=== PATIENT | female | born 1940 | race Caucasian/White ===

== ENCOUNTER 2017-01-28 07:55 | Inpatient (IN) | payer OTHER ==
[2017-01-28 08:07] VITALS: BMI 28.7
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
[2017-01-28 09:57] LABS: MCH 30.6 pg (25.7-33.7); MCHC 33.1 g/dl (32.0-36.0); MEAN CELL VOLUME 92.3 fl (80-96); MEAN PLT VOLUME 8.9 fl (7.5-11.1); PLATELET COUNT 171 K/MM3 (134-434); RDW 14.6 % (11.6-15.6); WHITE BLOOD COUNT 18.3 K/mm3 (4.0-10.0)
[2017-01-28 10:02] LABS: ALBUMIN 4.1 g/dl (3.4-5.0); ANION GAP 8 (8-16); CALCIUM 9.9 mg/dL (8.5-10.1); CO2 27 mmol/L (21-32); CREATININE 0.8 mg/dL (0.55-1.02); GLUCOSE,RANDOM 128 mg/dL (74-106); SGOT/AST 50 U/L (15-37); SGPT/ALT 43 U/L (12-78)
[2017-01-28 10:04] LABS: ALK PHOS 87 U/L (45-117); BILIRUBIN,TOTAL 0.6 mg/dL (0.2-1.0); TOT PROT 7.8 g/dl (6.4-8.2)
[2017-01-28 10:17] LABS: INR 1.02 (0.82-1.09); PROTHROMBIN TIME (PATIENT) 11.2 SEC (9.98-11.88)
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
[2017-01-28 12:04] LABS: BASOPHIL 0.3 % (0-2.0); EOSINOPHIL 0.3 % (0-4.5); MCH 30.6 pg (25.7-33.7); MCHC 33.1 g/dl (32.0-36.0); MEAN CELL VOLUME 92.6 fl (80-96); MEAN PLT VOLUME 9.5 fl (7.5-11.1); NEUTROPHILS 88.9 % (42.8-82.8); PLATELET COUNT 172 K/MM3 (134-434); WHITE BLOOD COUNT 19.1 K/mm3 (4.0-10.0)
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
[2017-01-28 15:23] LABS: URINE APPEARANCE CLEAR; URINE BILIRUBIN NEGATIVE (NEGATIVE); URINE BLOOD NEGATIVE (NEGATIVE); URINE COLOR STRAW; URINE GLUCOSE (UA) NEGATIVE (NEGATIVE); URINE KETONE NEGATIVE (NEGATIVE); URINE LEUK ESTERASE NEGATIVE (NEGATIVE); URINE NITRITE NEGATIVE (NEGATIVE); URINE PROTEIN NEGATIVE (NEGATIVE); URINE UROBILINOGEN NEGATIVE mg/dL (0.2-1.0)
[2017-01-28 18:56] LABS: BASOPHIL 0.7 % (0-2.0); EOSINOPHIL 0.2 % (0-4.5); MCH 30.1 pg (25.7-33.7); MCHC 32.9 g/dl (32.0-36.0); MEAN CELL VOLUME 91.6 fl (80-96); NEUTROPHILS 75.4 % (42.8-82.8); PLATELET COUNT 176 K/MM3 (134-434); RDW 14.6 % (11.6-15.6); WHITE BLOOD COUNT 8.1 K/mm3 (4.0-10.0)
[2017-01-28] MEDS: KETOROLAC TROMETHAMINE 10 MG TABLET PO SCH ×2 (19:53→21:52)
[2017-01-28] MEDS: ENOXAPARIN NA (PORCINE) 40 MG/0.4 ML DISP.SYRIN SQ SCH (19:54)
[2017-01-28] MEDS: BACITRACIN 15 GM TUBE TOPICAL OINTMENT TP SCH (21:50)
[2017-01-28] MEDS ORDERED: KETOROLAC TROMETHAMINE 10 MG TABLET PO SCH (22:00)
[2017-01-29] MEDS: KETOROLAC TROMETHAMINE 10 MG TABLET PO SCH ×3 (06:09→21:50)
[2017-01-29] MEDS ORDERED: ACETAMINOPHEN 325 MG TABLET (FP) PO PRN (07:18)
[2017-01-29 08:03] LABS: EOSINOPHIL 3.4 % (0-4.5); MCH 31.3 pg (25.7-33.7); MCHC 34.1 g/dl (32.0-36.0); MEAN CELL VOLUME 91.7 fl (80-96); NEUTROPHILS 62.3 % (42.8-82.8); PLATELET COUNT 151 K/MM3 (134-434); RDW 14.5 % (11.6-15.6); WHITE BLOOD COUNT 5.3 K/mm3 (4.0-10.0)
[2017-01-29] MEDS ORDERED: PT OWN MED DRAWER 7, Y5N ONE (09:35)
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
[2017-01-29] MEDS: POLYETHYLENE GLYCOL 3350 119 GM BTL PO SCH (10:24)
[2017-01-29] MEDS: LISINOPRIL 10 MG TABLET (FP) PO SCH (10:28)
[2017-01-29] MEDS: ENOXAPARIN NA (PORCINE) 40 MG/0.4 ML DISP.SYRIN SQ SCH (10:28)
[2017-01-29] MEDS: TRIAMTERENE AND HCTZ - 37.5 MG/25 MG CAPSULE PO SCH (10:28)
[2017-01-29] MEDS: BACITRACIN 15 GM TUBE TOPICAL OINTMENT TP SCH ×2 (10:28→21:50)
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
[2017-01-30] MEDS: KETOROLAC TROMETHAMINE 10 MG TABLET PO SCH ×2 (06:06→14:19)
[2017-01-30 07:16] LABS: BASOPHIL 1.3 % (0-2.0); MCH 31.3 pg (25.7-33.7); MCHC 34.3 g/dl (32.0-36.0); MEAN CELL VOLUME 91.4 fl (80-96); MEAN PLT VOLUME 8.9 fl (7.5-11.1); NEUTROPHILS 58.4 % (42.8-82.8); PLATELET COUNT 155 K/MM3 (134-434); RDW 14.5 % (11.6-15.6); WHITE BLOOD COUNT 6.3 K/mm3 (4.0-10.0)
[2017-01-30 07:37] LABS: ALBUMIN 3.4 g/dl (3.4-5.0); ANION GAP 6 (8-16); CO2 27 mmol/L (21-32); GLUCOSE,RANDOM 109 mg/dL (74-106)
[2017-01-30 07:42] LABS: ALK PHOS 71 U/L (45-117); BILIRUBIN,TOTAL 1.2 mg/dL (0.2-1.0); CREATININE 0.6 mg/dL (0.55-1.02); SGOT/AST 91 U/L (15-37); SGPT/ALT 92 U/L (12-78); TOT PROT 6.6 g/dl (6.4-8.2)
--- NOTE | 2017-01-30 08:50 | PN ---
Progress Note (short form) - Note Progress Note: NEUROSURGERY Events noted Wants to go home. PE: AF, VSS General- unremarkable CV- RRR; Lungs: CTA; Abd- benign; Ext- no sign of DVT; R D1 toe ecchymotic/ edematous with some foot involvement A/A/OX4 CN- intact; Motor- 5/5 except R foot 4/5 pain limited; Sensation- intact LT; DTR - hyporeflexic CT Abd- Large hepatic cyst; mild T12 and L1 superior endplate depression without canal compromise; no significant paraspinal tissue edema Recommend LS spine MRI non-contrast to assess acuity of such compression deformity at T12 and L1 and to r/o unlikely neurological element impingement Pain meds DVT prophylaxis per medical team (on Lovenox) No neurosurgical intervention indicated unless there is significant neurological element compression (would doubt it) Ortho eval for R foot D1 distal phalynx fx MRI LS spine pending
--- NOTE | 2017-01-30 09:07 | PN ---
Progress Note (short form) - Note Progress Note: NEUROSURGERY Events noted Wants to go home Had resisted taking pain meds Feel pain is tolerable PE: Tmax 99.4, AF, VSS General- unremarkable CV- RRR; Lungs: CTA; Abd- benign; Ext- no sign of DVT; R D1 toe ecchymotic/ edematous with some foot involvement A/A/OX4 CN- intact; Motor- 5/5 except R foot/toes 4/5 pain limited; Sensation- intact LT ; DTR- hyporeflexic CT Abd- Large hepatic cyst; mild T12 and L1 superior endplate depression without canal compromise; no significant paraspinal tissue edema Blood culture negative to date Recommend LS spine MRI non-contrast to assess acuity of such compression deformity at T12 and L1 and to r/o neurological element impingement Pain meds prn DVT prophylaxis per medical team (on Lovenox) No neurosurgical intervention indicated unless there is significant neurological element compression Ortho eval for R foot D1 distal phalynx fx MRI LS spine pending Pt wishes to f/u with her own physicians close to home with the MRI disc after discharge
[2017-01-30] MEDS ORDERED: PT OWN MED DRAWER 7, Y5N ONE ×2 (09:57→14:11)
[2017-01-30] MEDS: TRIAMTERENE AND HCTZ - 37.5 MG/25 MG CAPSULE PO SCH (09:59)
[2017-01-30] MEDS: LISINOPRIL 10 MG TABLET (FP) PO SCH (09:59)
[2017-01-30] MEDS: ENOXAPARIN NA (PORCINE) 40 MG/0.4 ML DISP.SYRIN SQ SCH (09:59)
[2017-01-30] MEDS: POLYETHYLENE GLYCOL 3350 119 GM BTL PO SCH (10:01)
[2017-01-30] MEDS: BACITRACIN 15 GM TUBE TOPICAL OINTMENT TP SCH (10:01)
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
[2017-01-30] MEDS ORDERED: LISINOPRIL 10 MG TABLET (FP) PO SCH (10:58)
[2017-01-30] MEDS ORDERED: LISINOPRIL 10 MG TABLET (FP) PO ONE (11:15)
[2017-01-30 14:26] VITALS: BP 164/69; PULSE 84; TEMP 98.3
--- NOTE | 2017-01-30 15:51 | CONSULT ---
Consult - text type - Consultation Consultation Note: FULL CONSULT DICTATED IMP: RIGHT GREAT TOE FX PLAN: POST OP SHOE, WBAT, DC TO HOME, F/U X 2 WEEKS
[2017-01-30 15:52] LABS: ALBUMIN 3.4 g/dl (3.4-5.0); ANION GAP 8 (8-16); BILIRUBIN,TOTAL 0.7 mg/dL (0.2-1.0); CALCIUM 9.2 mg/dL (8.5-10.1); CO2 27 mmol/L (21-32); CREATININE 0.7 mg/dL (0.55-1.02); GLUCOSE,RANDOM 127 mg/dL (74-106); SGOT/AST 105 U/L (15-37); SGPT/ALT 103 U/L (12-78); TOT PROT 6.9 g/dl (6.4-8.2)
[2017-01-30 15:53] LABS: ALK PHOS 86 U/L (45-117)
--- NOTE | 2017-01-30 16:24 | DS ---
Physical Examination Vital Signs: Vital Signs Temperature 98.3 F 01/30/17 14:24 Pulse Rate 84 01/30/17 14:24 Respiratory Rate 18 01/30/17 14:24 Blood Pressure 164/69 01/30/17 14:24 O2 Sat by Pulse Oximetry (%) 96 01/30/17 10:00 Labs: CBC, BMP 01/30/17 14:49 Discharge Summary Reason For Visit: ABDOMINAL PAIN DUE TO INJURY Current Active Problems Abdominal pain due to injury (Acute) - Instructions Referrals: STAFF,NOT ON [Primary Care Provider] - Disposition: AGAINST MEDICAL ADVICE - Home Medications Comprehensive Discharge Medication List: Ambulatory Orders Hctz 25Mg/Triamterene [Dyazide 25/37.5MG -] 1 cap PO DAILY 01/28/17 Lisinopril 10 mg PO DAILY 01/28/17 - Discharge Referral Referred to [facility] Med P.C.: No
[2017-01-31] MEDS ORDERED: LISINOPRIL 20 MG TABLET (FP) PO SCH (10:00)
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
== END 2017-01-30 16:56 | disposition left against medical advice (07) | DRG 342 ==
LOC: JER 07:55 → JERBED 14:31 → J6S 17:54 → OBSVTOIN 01-30 12:35
PROVIDERS: ADMIT Internal Medicine; ATTEND Registered Nurse
DX: S92.491A Other fracture of right great toe, initial encounter for closed fracture (principal); S32.019A Unspecified fracture of first lumbar vertebra, initial encounter for closed fracture; S22.089A Unspecified fracture of T11-T12 vertebra, initial encounter for closed fracture; S30.1XXA Contusion of abdominal wall, initial encounter; S20.212A Contusion of left front wall of thorax, initial encounter; S30.811A Abrasion of abdominal wall, initial encounter; S90.111A Contusion of right great toe without damage to nail, initial encounter; S20.312A Abrasion of left front wall of thorax, initial encounter; V43.62XA Car passenger injured in collision with other type car in traffic accident, initial encounter; Y92.414 Local residential or business street as the place of occurrence of the external cause; I10 Essential (primary) hypertension; D72.829 Elevated white blood cell count, unspecified; R07.9 Chest pain, unspecified; I16.0 Hypertensive urgency
CPT/HCPCS: 36415; 71010-TC; 73630-TC-RT; 74177-TC; 80053; 81003; 83735; 84484; 85025; 85027; 85610; 87040; 87086; 94010; 99284-25; G0378